=== PATIENT | male | born 1990 | race African-American/Black ===

== ENCOUNTER 2017-04-10 02:24 | Inpatient (IN) | payer OTHER ==
[~2017-04-10] VITALS: Ht 180.3 cm; Wt 82.4 kg
[2017-04-10 02:52] LABS: MEAN CORPUSCULAR HEMOGLOBIN 32.1 pg (27.0-33.0); MEAN CORPUSCULAR VOLUME 97.2 fl (80.0-96.0); RED CELL DISTRIBUTION WIDTH 11.4 % (11.5-14.5); WHITE BLOOD COUNT 10.7 K/mm3 (4.0-10.0)
[2017-04-10 03:31] LABS: METHADONE URINE NEGATIVE (NEGATIVE)
[2017-04-10 04:25] LABS: ALBUMIN/GLOBULIN RATIO 1.38 (1.00-1.93); ALKALINE PHOSPHATASE 67 U/L (45-117); ALT/SGPT 18 U/L (12-78); ANION GAP 9 MEQ/L (8-16); AST/SGOT 14 U/L (15-37); BILIRUBIN,DIRECT 0.1 MG/DL (0.0-0.2); BILIRUBIN,TOTAL 0.4 MG/DL (0.2-1.0); BLOOD UREA NITROGEN 13 MG/DL (7-18); CALCIUM LEVEL 8.9 MG/DL (8.5-10.1); CARBON DIOXIDE LEVEL 28 MEQ/L (21-32); CHLORIDE LEVEL 107 MEQ/L (98-107); CREATININE FOR GFR 0.99 MG/DL (0.70-1.30); GLOMERULAR FILTRATION RATE > 60.0 (>60); GLUCOSE, FASTING 104 MG/DL (70-105); POTASSIUM SERUM 3.4 MEQ/L (3.5-5.1); SODIUM LEVEL 144 MEQ/L (136-145); TOTAL PROTEIN 6.9 GM/DL (6.4-8.2)
[2017-04-10] MEDS ORDERED: traZODone 50 MG TAB PO PRN (06:00)
[2017-04-10] MEDS ORDERED: MAALOX 30 ML SUSP *UDC PO PRN (06:00)
[2017-04-10] MEDS ORDERED: MOM 30ML SUSPENSION UDC PO PRN (06:00)
[2017-04-10] MEDS ORDERED: ACETAMINOPHEN TAB 650MG DOSE (2X325MG) PO PRN (06:00)
[2017-04-10 08:16] VITALS: BP 157/70
--- NOTE | 2017-04-10 12:00 | MHHPEPDOC ---
[facility] History & Physical History and Physical DATE OF ADMISSION: Apr 10, 2017 at 05:56 LEGAL STATUS AT ADMISSION: 9.39 CHIEF COMPLAINT: "I came here to talk to somebody and don't know why I am here. 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 He has been in the service for 8 months. It has been a life style change for him. He reports numerous stressors over the last year which was the onset of thoughts of Suicide. He has a father with Alzheimer's in [place] that he is close to. It is difficult for Maynor to watch him decline. His mother is caring for him and has help but Huber remains concerned. He also just finished a custody suit over his son who he now has full group home custody of. He has raised his son for the past 7 years. He is and his has 2 children from a previous relationship. Maynor and his and the 3 children all reside together. He repots on the weekends in the summer he has to transport the daughter to [place] for visitation and this is court ordered. He also says he worries about bills and fiances and this has caused him to lose sleep. Pt reported to his first Kat that he has had suicidal thoughts for the past year. He reported this while out in the field after he sprained his ankle. He says the sprain " was just one more thing and pushed him over the edge to talk about his suicidal thoughts". He denies ever making a plan to kill himself or making any attempt to kill himself. He says he has never overdosed or harmed himself in any way. He reports his father is a Deacon and his mother is "yazidism". He had a strong evangelical upbringing and most of his family are living this way. Pt was brought in by his first Latah to the ED after an attempt to see the [employer] [place] could not be accomplished. Pt is seeking discharge saying he has to picker and packer the step daughter in [place] over the weekend. PSYCHIATRIC REVIEW OF SYSTEMS: Affective: pleasant Anxiety: mild. Trauma: denies. Psychosis: none reported or observed. Personally: friendly. PAST PSYCHIATRIC HISTORY: Prior Psychiatric Disorder: none, first admission. Outpatient Treatment: none. Suicidal/Self injurious: none. Psychotropic Medication History: none and pt refuses to take any medication during the admission. ALLERGIES: Please see below. FAMILY PSYCHIATRIC HISTORY: PGF-alcoholism, sober at his . Brother ADD SOCIAL HISTORY: Early Relations/development: good family relations. Sibling order: Youngest, 1 older brother. Paternal relationships: close to parents. Education: [employer]-several semesters. Occupational: [employer] Legal: completed child custody case Martial: Economic: . Supports: , mother ,friends Abuse/trauma: denies. SUBSTANCE ABUSE HISTORY: Alcohol 3 drinks a month. ([employer] wine coolers) Cannabis Saturday evenings and weekends. Toxicology negative for ETOH, amphetamine , benzo's, opioids, cocaine, Positive for Cannabis. PAST MEDICAL/SURGICAL HISTORY: current sprained left ankle Labs: WBC-10.7, slightly elevated, Potassium, slightly low at 3.4, TSH 0.765, Hgb, 13.9-L, MCV 97.2 H, RDW 11.4, AST - 14 VITAL SIGNS: Temperature 98.2, pulse 79, respiratory rate 16, blood pressure 157 /70, pulse oximetry 98% on room air. MENTAL STATUS EXAMINATION: General appearance: Patient is a 26-year old male, who is dressed in hospital garb, clean shaven, well groomed, good eye contact. Speech: spontaneous Thought processes: goal directed Thought content: appropriate. Abstract reasoning and computation: good. Description of associations: good. Description of abnormal or psychotic thoughts: no delusion, no voices or visions , no FOI or IOR, no MAJOR, Denies si with plan or intent. no HI Judgment: limited. Insight: good. Orientation: well oriented to time, place, situation, and person. Recent and remote memory: grossly intact. Attention span and concentration: good. Fund of knowledge: Full. Mood: anxious Affect: congruent. DIAGNOSES: 1. adjustment disorder with anxious mood, depressed mood 2. Cannabis abuse ASSESSMENT: If pt is to be believed he has been traveling to [place] to permit court ordered visitation with step-daughter on the weekend without informing his command. When he tried to use this "court ordered business" as a reason for quick discharge it back fired when his Capt. told our case planner he was not aware of any pass [place] had that would allow him to leave the state this weekend. Welder Apprentice Combination initially was going to try to facilitate a quick ERIBERTO meeting but the Capt is in the field and under the circumstances I am not inclined to ask him to stop what he is doing to come in a meet with us. Pt denies guilt, poor energy, weight changes, appetite change, lack of interest or poor concentration. He does admit to sleep habits that have not been good over the past year. He feels mostly it is due to financial worries, his father and his custody case. He is only sleeping about 4 hours a night compared to his usual 7-8 hours. We discussed the use of Melatonin 5 mg quick dissolve tab when he leaves to help initiate sleep. Pt is clear he does not want to take any medication. Pt denies symptoms of psychosis, no voices, visions, delusions or altered thoughts and perceptions. Pt denies mood swings, excess energy, no need for sleep or racing thoughts. No panic attacks or excessive worry. No trauma or abuse. He enjoys his Play station and playing basket ball. he takes the children to the park for basket ball about 4 times a week, including the step- daughter. They spend about a half hour a night reading as a family. His children are doing well in school. He has not attended restoration since he left [place]. Per the Mr. Lamar was crying and very upset after he sprained his ankle, was medically evaluated and treated in the field and then denied an ER visit for the ankle by command as the matter had been addressed. The pt attempted to walk home ( 2 miles on a sprained ankle). brought him to our ED as pt was sobbing and his comments were unintelligible for about 15 mins. The patient shared during that time that his marriage was in trouble as he suspects his is cheating on him. Apparently pt has been in financial trouble for a long time (perhaps due to his legal taylor for custody) nad he told the Sgt he was broke before he joined the . The helped him with loans etc but apparently this has not been enough. Pt with held these details as stressors and it is believed he did so to persuade provider to discharge him without telling the full back story. Apparently pt told case planner that he did not even plan to go to [place] this weekend when he was questioned about a pass. His was going instead. His story is full of holes and lies and we will hold him here and expose him to some healthy coping strategies that may improve his life situation. . PROBLEM LIST: 1. thoughts of suicide without plan or intent 2. anxiety related to financial concerns 3. substance abuse Plan: pt will be closely monitored for safety. He is asked to attend programming beginning tomorrow as he is quite tired today due to admission procedures. We will schedule ERIBERTO next week when Capt is available after completing work in the field. Pt says he uses meditation to help calm himself and he is encouraged to do this while on the unit. He is aware of unit rules and has contracted for safety. INITIAL TREATMENT PLAN: 1. Patient was admitted on a 9.39 2. Complete history was obtained. 3. With patients permission, family will be contacted and database will be expanded. 4. Patients medication regimen will be reviewed and changed accordingly. 5. Patient will be provided with protected environment. 6. Patient will be treated with individual, group, and milieu therapies. 7. Patient will receive supportive psych-education. 8. Discharge planning will commence immediately. 9. Outpatient follow-up treatment will be strongly recommended. 10. The initial treatment plan will focus initially on: * Depression. * Risk for suicide. * Substance abuse. ESTIMATED LENGTH OF STAY: 6 DAYS. TIME SPENT COUNSELING AND COORDINATING INITIAL CARE: 50 minutes. Laboratory Data 24H Labs Laboratory Tests 2 04/10/17 03:05: Anion Gap 9, Glomerular Filtration Rate > 60.0, Calcium Level 8.9, Aspartate Amino Transf (AST/SGOT) 14L, Alanine Aminotransferase (ALT/SGPT) 18, Alkaline Phosphatase 67, Total Bilirubin 0.4, Direct Bilirubin 0.1, Total Protein 6.9, Albumin 4.0, Albumin/Globulin Ratio 1.38, Thyroid Stimulating Hormone (TSH) 0.765, Salicylates Level < 1.7L, Urine Amphetamines Screen NEGATIVE, Urine Benzodiazepines Screen NEGATIVE, Urine Opiates Screen NEGATIVE, Urine Methadone Screen NEGATIVE, Acetaminophen Level < 2.0L, Urine Barbiturates Screen NEGATIVE , Urine Phencyclidine Screen NEGATIVE, Urine Cocaine Metabolite Screen NEGATIVE , Urine Cannabinoids Screen POSITIVEH, Ethyl Alcohol Level < 0.003 CBC/BMP Laboratory Tests 04/10/17 02:44 Red Blood Count 4.33, Mean Corpuscular Volume 97.2 H, Mean Corpuscular Hemoglobin 32.1, Mean Corpuscular Hemoglobin Concent 33.0, Red Cell Distribution Width 11.4 L 04/10/17 03:05 Medications No Active Prescriptions or Reported Meds Allergies Coded Allergies: No Known Allergies (Unverified , 04/10/17) Nadia Hughes Apr 10, 2017 12:00
--- NOTE | 2017-04-10 12:10 | HPEPDOC ---
Medical History and Physical Date of Admission Apr 10, 2017 at 05:56 History and Physical PCP: [facility] ATTENDING: Dr. Carroll Rice HPI: 26yoM admitted to [facility] for depressive disorder, being medically examined today. No acute medical complaints today. Denies any fevers, chills, weakness, fatigue, CRUZ, CP, SOB, cough, palpitations, abdominal pain, N/V/D or changes in bowel or bladder habits. PMHx: depression PSHX: denies SOCHX: Resides in: [facility], from [place]. Marital Status: Kids: 1 child, 2 stepchildren. 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 ROS: As noted in HPI, otherwise 11pt ROS of systems reviewed and remarkable only for recent left ankle sprain in training, pt states pain and swelling has resolved and no concerns currently. PE: GEN: 26yoM, appears stated age. Well-nourished, well developed. No acute distress. Alert and oriented x 3. Pleasant, interactive. HEENT: Normocephalic, atraumatic. Pupils are equal, round, and reactive to light. Extraocular movements are intact. No nystagmus appreciated. Sclera are nonicteric. Conjunctiva without injection. Nose midline. Nasal turbinates without bogginess. EACs both patent BL. TMs both visualized and farrar with good cone of light, no bulging or erythema. No facial asymmetry. Moist mucous membranes. Dentition fair. Pharynx pink and moist, no cobblestoning. Neck supple , trachea midline. No lymphadenopathy or thyromegaly appreciated. CHEST: Regular rate and rhythm, +S1, +S2 LUNGS: Clear to auscultation bilaterally. No wheezes, rales, or rhonchi. Breathing appears symmetric and easy. Patient is speaking in full sentences. No accessory muscle use. ABD: Round, soft, non-tender, non-distended. +Bowel sounds throughout. No rebound or guarding. No costovertebral angle tenderness. EXT: Pulses 2+ bilaterally dorsalis pedis and radial. No lower extremity edema appreciated. SKIN: [place], dry, warm. Capillary refill <2sec. No rashes. NEURO: Alert and oriented x 3. Cranial nerves III-XII are intact. No focal deficits appreciated. EKG: pending. A&P: 26yoM admitted to [facility] for depressive disorder 1. Psych. Plan per Psychiatry. Obtain baseline EKG to assure the safety of psychiatric medications as they can prolong the QT interval. 2. Nicotine dependence. Patch available. 3. Hypokalemia. Pt states po intake is improved. Recheck BMP in AM. 4. Follow up with PCP on discharge. 5. Substance use. Per psychiatry. 6. Leukocytosis. Pt afebrile, asymptomatic. Recheck CBC in AM. 7. Staff member Nick present throughout exam. Vital Signs Vital Signs Date Time Temp Pulse Resp B/P (MAP) Pulse Ox O2 Delivery O2 Flow Rate FiO2 04/10/17 08:16 98.2 79 16 157/70 (99) 04/10/17 07:22 98 Room Air Laboratory Data Labs 24H Laboratory Tests 2 04/10/17 03:05: Anion Gap 9, Glomerular Filtration Rate > 60.0, Calcium Level 8.9, Aspartate Amino Transf (AST/SGOT) 14L, Alanine Aminotransferase (ALT/SGPT) 18, Alkaline Phosphatase 67, Total Bilirubin 0.4, Direct Bilirubin 0.1, Total Protein 6.9, Albumin 4.0, Albumin/Globulin Ratio 1.38, Thyroid Stimulating Hormone (TSH) 0.765, Salicylates Level < 1.7L, Urine Amphetamines Screen NEGATIVE, Urine Benzodiazepines Screen NEGATIVE, Urine Opiates Screen NEGATIVE, Urine Methadone Screen NEGATIVE, Acetaminophen Level < 2.0L, Urine Barbiturates Screen NEGATIVE , Urine Phencyclidine Screen NEGATIVE, Urine Cocaine Metabolite Screen NEGATIVE , Urine Cannabinoids Screen POSITIVEH, Ethyl Alcohol Level < 0.003 CBC/BMP Laboratory Tests 04/10/17 02:44 Red Blood Count 4.33, Mean Corpuscular Volume 97.2 H, Mean Corpuscular Hemoglobin 32.1, Mean Corpuscular Hemoglobin Concent 33.0, Red Cell Distribution Width 11.4 L 04/10/17 03:05 Home Medications No Active Prescriptions or Reported Meds Allergies Coded Allergies: No Known Allergies (Unverified , 04/10/17) Mara Awad Apr 10, 2017 12:10
[2017-04-10 18:05] VITALS: BP 138/90
--- NOTE | 2017-04-10 23:07 | ECGEPIP ---
Stationary ECG Study [facility] Test Date: 2017-04-10 Pat Name: SURINDER WILSON Department: Room: [place] [address] Gender: M Kettle Girl: JAME : 1990 Requested By: Mara Awad Order Number: [id number] Reading MD: Juan Jose Dawson Measurements Intervals [place] Rate: 60 P: 0 MN: 124 QRS: 45 QRSD: 117 T: 46 QT: 403 QTc: 403 Interpretive Statements SINUS RHYTHM MODERATE INTRAVENTRICULAR CONDUCTION DELAY/RIGHT BUNDLE BRANCH BLOCK PATTERN NO PRIOR TRACING Electronically Signed On 04-10-2017 23:07:25 EDT by Juan Jose Dawson
[2017-04-11 07:21] VITALS: BP 115/86
[2017-04-11 07:24] LABS: MEAN CORPUSCULAR HEMOGLOBIN 32.3 pg (27.0-33.0); MEAN CORPUSCULAR HGB CONC 33.5 g/dl (32.0-36.5); MEAN CORPUSCULAR VOLUME 96.7 fl (80.0-96.0); RED CELL DISTRIBUTION WIDTH 11.8 % (11.5-14.5); WHITE BLOOD COUNT 4.9 K/mm3 (4.0-10.0)
[2017-04-11 07:45] LABS: ANION GAP 5 MEQ/L (8-16); BLOOD UREA NITROGEN 11 MG/DL (7-18); CALCIUM LEVEL 9.2 MG/DL (8.5-10.1); CARBON DIOXIDE LEVEL 28 MEQ/L (21-32); CHLORIDE LEVEL 110 MEQ/L (98-107); CREATININE FOR GFR 0.97 MG/DL (0.70-1.30); GLOMERULAR FILTRATION RATE > 60.0 (>60); GLUCOSE, FASTING 84 MG/DL (70-105); POTASSIUM SERUM 4.1 MEQ/L (3.5-5.1); SODIUM LEVEL 143 MEQ/L (136-145)
--- NOTE | 2017-04-11 15:24 | MHDSPDOC ---
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 He has serious financial problems, his elderly father has alzheimers, he recently changed duty locations and completed a custody taylor for his son. Pt wanted to talk to someone about how he was feeling. His first [place] took him to the [facility] who was not available. The patient had been crying and saying things that weren' t always understood. He made suicidal statements and the 1st [place] brought him to hospital. He persisted with SI in the ED so he was admitted. CONSULTANTS INVOLVED: na TREATMENT AND PROGRESS ON THE UNIT : Pt immediately wanted to leave saying there was a misunderstanding and he just wanted to talk to someone. He also claimed he needed to be able to travel to [place] over the weekend to collect his step-daughter who was visiting her father. A ERIBERTO meeting was requested per patients request and the Capt told us the patient did not have a pass to leave this weekend. This caused some doubt on our part as to what other things was the patient saying that were not true so we decided to hold the ERIBERTO meeting later so we could evaluate him further. pt was pleasant and kind on the unit. He used the phone a lot to talk to family. He was not a behavior challenge. Pt made it clear he was about to consider taking any medications while he was here. He painted a very neto picture of his and children and his family life. When commercial loan underwriter met with him today to explain why he was still here he talked about his failure to advanced any further at this point in life and blamed it on his race and discrimination. He had to admit that the was not complicit in this and that the had been very supportive of him. HOSPITAL COURSE: no meds were ordered per pts request. he attended some groups, took care of hygiene and interacted appropriately with peers. pt denied referral for substance abuse. DISCHARGE ASSESSMENT: pt will need ongoing therapy for improved coping skills and [place]OR[place] for his cannabis issue. MENTAL STATUS EXAMINATION ON DISCHARGE: Patient is a 26-year old male, who is , well groomed, good eye contact, cooperative. Speech is very talkative today, logical Language skills are intact Thought processes including: linear. Thought content: appropriate. Abstract reasoning, and computation: good. Description of associations: good. Description of abnormal or psychotic thoughts: no SI or HI, no psychotic symptoms. Judgment: fair. Insight: limited Orientation to well oriented. Recent and remote memory: selective. Attention span and concentration: good. Fund of knowledge: Full. Mood: anxious Affect: congruent. MEDICATIONS ON DISCHARGE: none PLAN/FOLLOWUP ARRANGEMENTS: [facility] [place] The amount of time spent in the coordination of care for this patient was approximately 30 minutes. Vital Signs/I&Os Vital Signs Date Time Temp Pulse Resp B/P (MAP) Pulse Ox O2 Delivery O2 Flow Rate FiO2 04/11/17 07:21 98.7 69 18 115/86 (96) 04/10/17 07:22 98 Room Air Laboratory Data Labs 24H Laboratory Tests 2 04/11/17 07:10: Anion Gap 5L, Glomerular Filtration Rate > 60.0, Blood Urea Nitrogen 11, Creatinine 0.97, Sodium Level 143, Potassium Level 4.1#, Chloride Level 110H, Carbon Dioxide Level 28, Calcium Level 9.2 CBC/BMP Laboratory Tests 04/11/17 07:10 Red Blood Count 4.18 L, Mean Corpuscular Volume 96.7 H, Mean Corpuscular Hemoglobin 32.3, Mean Corpuscular Hemoglobin Concent 33.5, Red Cell Distribution Width 11.8, Calcium Level 9.2 Medications No Active Prescriptions or Reported Meds Allergies Coded Allergies: No Known Allergies (Unverified , 04/10/17) Nadia Hughes Apr 11, 2017 15:24
== END 2017-04-11 13:40 | disposition home or self-care (01) | DRG 882 ==
LOC: M ED 02:24 → M ED INP 05:56 → M PSY 08:10
PROVIDERS: ADMIT Psychiatry & Neurology Psychiatry; ATTEND Psychiatry & Neurology Psychiatry
DX: F43.23 Adjustment disorder with mixed anxiety and depressed mood (principal); F12.10 Cannabis abuse, uncomplicated; Z81.1 Family history of alcohol abuse and dependence; F17.210 Nicotine dependence, cigarettes, uncomplicated; E87.6 Hypokalemia

== ENCOUNTER 2017-05-22 10:36 | Emergency (ER) | payer OTHER ==
[~2017-05-22] VITALS: Ht 180.3 cm; Wt 81.8 kg
[2017-05-22 10:37] VITALS: BP 131/84
[2017-05-22] MEDS ORDERED: CYCL10TA PO (11:50)
== END 2017-05-22 12:02 | disposition home or self-care (01) ==
LOC: M ED 10:36
DX: M62.830 Muscle spasm of back (principal); F17.210 Nicotine dependence, cigarettes, uncomplicated